=== PATIENT | male | born 1945 ===

== ENCOUNTER 2016-05-05 07:08 | Observation (INO) | payer MEDICARE ==
--- NOTE | ~2016-05-05 | PREOPHP ---
PreOp History and Physical [facility] [address] [place]. [address] NAME: CEDRIC BOWLES : 44 STATUS : ADM Zbigniew PAT#: [id number] AGE: 70 ADM/REG DATE : 05/05/16 MR#: [id number] REPORT SERV DATE: 05/06/16 DICTATED BY: SANDIP EDUARDO DATE: 05/06/16 REPORT STATUS : Draft TRANSCRIBED BY: MODBelinda DATE: 05/06/16 CHIEF COMPLAINT: Back pain, leg pain, right greater than left. HISTORY OF PRESENT ILLNESS: 70-year-old morbidly obese male from the [place] back pain, leg pain that has been through several months of conservative care. Plain x-rays reveal disk degeneration spondylosis throughout his spine severe foraminal stenosis bilaterally at L5-S1. He has had a prior fusion at L4-5. The patient is brought to surgery for a left and right L5-S1 hemilaminotomy, foraminotomy, partial facetectomy. Prior to surgery, risks, benefits, alternatives, and expectations explained. Consent form has been signed. The patient was initially scheduled as a 23-hour observation but his pain severe postop day 1. He is being converted to a regular admission. PAST MEDICAL HISTORY: Morbid obesity, diabetes mellitus type 2, osteoarthritis, hypertension, and gastroesophageal reflux disease. PAST SURGICAL HISTORY: Listed in the chart. See that for detail. CURRENT MEDICATIONS: Alfuzosin, aspirin, gabapentin, hydrocodone, metformin, Singulair, naproxen, Restoril, tramadol. ALLERGIES: MORPHINE. SOCIAL HISTORY: He is , still works, running heavy equipment. He does not use any tobacco or alcohol. FAMILY HISTORY: Noncontributory. REVIEW OF SYSTEMS: Otherwise negative. PHYSICAL EXAMINATION: VITAL SIGNS: He is 6 feet 2 inches, 300 pounds. GENERAL: He is alert, cooperative, well oriented. Ambulates independently. HEENT: Exam is grossly normal. LUNGS: Clear to auscultation. HEART: Rate is regular and rhythmic. ABDOMEN: Soft with good bowel sounds. No peritoneal signs are noted. The spine itself has no deformities. There is decreased range of motion due to pain. He has negative straight leg raise and negative femoral nerve stretch test. His motor strengths are normal in both lower extremities. His reflexes are absent. He has some mild stocking-glove decrease in sensation below the knees bilateral. No myelopathy found. Orthopedically, he has no pain with moving hips, knees, or ankles. There are pulses in all four extremities. No abnormal skin lesions found. ASSESSMENT AND RECOMMENDATIONS: As listed above. PreOp History and Physical [address] [address] NAME: CEDRIC BOWLES : 44 STATUS : ADM Zbigniew PAT#: [id number] AGE: 70 ADM/REG DATE : 05/05/16 MR#: [id number] REPORT SERV DATE: 05/06/16 DICTATED BY: SANDIP EDUARDO DATE: 05/06/16 REPORT STATUS : Draft TRANSCRIBED BY: MODBelinda DATE: 05/06/16 /IVONNE Sandip Eduardo D.O. / [id number] CC: Sandip Eduardo D.O.
--- NOTE | ~2016-05-05 | OP ---
Record Of Operation [facility] [address] [place]. [address] NAME: CEDRIC BOWLES : 44 STATUS : ADM Zbigniew PAT#: [id number] AGE: 70 ADM/REG DATE : 05/05/16 MR#: [id number] REPORT SERV DATE: 05/05/16 DICTATED BY: SANDIP EDUARDO DATE: 05/05/16 REPORT STATUS : Draft TRANSCRIBED BY: MODL DATE: 05/05/16 DATE OF PROCEDURE: 05/05/2016 PREOPERATIVE DIAGNOSIS: Severe stenosis L5-S1 lateral recess and foraminal zone, bilateral, right greater than left. POSTOPERATIVE DIAGNOSIS: Severe stenosis L5-S1 lateral recess and foraminal zone, bilateral, right greater than left. PROCEDURES: 1. Microscopic navigation assisted surgery. 2. Right and left L5-S1 hemilaminectomy, foraminotomy, partial facetectomy, and diskectomy. SURGEON: Sandip Eduardo D.O. PAPER LATCHER: Bartolo Palomo. ANESTHESIA: General. BLOOD LOSS: 25 mL. INDICATION FOR SURGERY: This is a 70-year-old male from the [facility] with prior history of a decompression fusion by spine surgeons in the [place], [place] area at L4-5. At that time he had that initial fusion, he also had a laminectomy midline at L5-S1 but he has now developed intractable right greater than left leg pain. It is worse with standing and walking and somewhat relieved by sitting but even at night, he has had great difficulty sleeping because the pain is so severe. He is very restricted in his ambulatory abilities due to the pain and the onset is when trying to stand and walk. He has had plain x-rays which showed the fusion at L4-5 with hardware. The hardware appears to be in good position. There is marked facet arthropathy at L5-S1 as well as at other levels including L2-3 and L3-4. MRI scan does not show any significant stenosis at L4-5. He has had prior surgery. He has severe lateral recess and foraminal stenosis, worse on the right than the left but he has on both sides. He has tried usual conservative care with time, medication, physical therapy, etc. He has failed conservative care. He is brought to surgery for the above procedure. Prior to surgery, risks, benefits, alternatives, and expectations explained. Consent form is signed. Please also note because of the complexity of surgery and the need to identify the correct level of surgery as well as assist in the safest and most precise dissection, we feel that intraoperative navigation will be mandatory. Antibiotic prophylaxis given. Neurophysiology monitoring leads inserted. The patient was brought to the operative suite. General anesthetic including endotracheal intubation was administered. The patient was placed prone on a Shree spine frame. Bony prominences were carefully padded. Thoracolumbar spine was scrubbed with Hibiclens solution. DuraPrep was Record Of Operation [facility] [address] [facility] [place]. [address] NAME: CEDRIC BOWLES : 44 STATUS : ADM Zbigniew PAT#: [id number] AGE: 70 ADM/REG DATE : 05/05/16 MR#: [id number] REPORT SERV DATE: 05/05/16 DICTATED BY: SANDIP EDUARDO DATE: 05/05/16 REPORT STATUS : Draft TRANSCRIBED BY: IVONNE DATE: 05/05/16 painted. Sterile drapes applied. A small stab wound was carried out of the right posterior superior iliac spine. A percutaneous pin with navigational frame attached was inserted in PSIS. Intraoperative CT scan with O-arm obtained, CT information used to register the navigational system. With navigational assistance, I identified the L5-S1 level. In the midline, a 2 cm skin incision was carried out. Initially, I placed a blunt navigated probe through the fascia and muscle and docked over the remaining lamina, pars and facet joint of L5-S1. Muscle dilator was inserted, followed by placement of a tubular retractor attached to an arm mount on the table. The microscope was sterilely draped and used throughout the remainder of the procedure. With navigational assistance, I outlined carefully where I wanted to debride. I localized the skin edges. I carried out more laminectomy with removal noted 10% to 15% or less, inferior lamina of L5. I removed approximately 70% of the facet joint. Thus, he certainly is a high risk of developing a Pars fracture, but he has such significant spondylosis around the L5-S1 disk space, I think he is essentially auto fused and should be stable. After debriding the ostia of the facet joint, I localized the lateral thecal sac and worked from lateral to medial. I mobilized the epidural fibrosis and allowed the thecal sac to be retracted medially. There was a rather large disc osteophyte complex which was debrided with a combination of the bur as well as a rongeur. I worked from medial to lateral and worked out the canal to remove the herniation which was rather marked and impressive upon the right L5-S1. Once that was complete, the wounds were irrigated. The retractor was removed and I moved to the left side. I replaced the tubular retractor as I previously described. I repeated the same identical hemilaminectomy, foraminotomy, partial facetectomy on the left side with not as much compression on the left as the right side was still with significant medial and mid foraminal stenosis. After final irrigation, the retractor was removed, the fascia closed with interrupted #1 Vicryl suture, subcutaneous tissue closed with 2-0 Vicryl sutures, 2 vertical mattress nylon suture used for skin closure. Sterile dressings were applied. The patient was returned to supine position, awakened, extubated, taken to the recovery room in satisfactory condition, having tolerated the procedure well. Sponge, needle, and instrument counts were correct. No intraoperative complications noted. FARHAN/MODL Sandip Eduardo D.O. / [id number] CC: Sandip Eduardo D.O.
[~2016-05-05 07:08] MED LIST: ASAB PO; GLUCPH PO; LOSARTAN PO; NAP500 PO; NEUR600 PO; NORCO1 TA1 PO; RESTORIL30 MG PO; SINGULAIR1 PO; ULTRAM50 PO; UROXATRAL PO
[2016-05-05 07:50] LABS: HEMATOCRIT 46.5 % (40.0-51.0); HEMOGLOBIN 15.4 g/dL (13.6-17.8)
[2016-05-05 08:00] LABS: BUN (BLOOD UREA NITROGEN) 22 MG/DL (6-23); CALCIUM, SERUM 8.8 MG/DL (8.5-10.4); CHLORIDE, SERUM 104 MMOL/L (96-112); CO2 (CARBON DIOXIDE) 29 MMOL/L (24-34); CREATININE 1.33 MG/DL (0.70-1.30); GFR AFRICAN AMERICAN 62 ML/MIN (>=60); GFR NON AFRICAN AMERICAN 53 ML/MIN (>=60); GLUCOSE, SERUM 117 MG/DL (60-99); POTASSIUM, SERUM 4.2 MMOL/L (3.5-5.3); SODIUM, SERUM 142 MMOL/L (135-148)
[2016-05-07] MEDS ORDERED: ROXICODONE15 MG PO (09:37)
[2016-05-07] MEDS ORDERED: METHOC750B PO (09:37)
== END 2016-05-07 11:55 | disposition home or self-care (01) ==
LOC: SDC 07:08 → 3SO 16:38
PROVIDERS: Anesthesiology; Orthopaedic Surgery Orthopaedic Surgery of the Spine
PROC: 0SB20ZZ Excision of Lumbar Vertebral Disc, Open Approach (ICD-10-PCS; principal; 2016-05-05 08:45)
PROC: 01NB0ZZ Release Lumbar Nerve, Open Approach (ICD-10-PCS; 2016-05-05 08:45)
DX: M48.07 Spinal stenosis, lumbosacral region (principal); E66.01 Morbid (severe) obesity due to excess calories; E11.9 Type 2 diabetes mellitus without complications; M19.90 Unspecified osteoarthritis, unspecified site; J30.2 Other seasonal allergic rhinitis; E78.00 Pure hypercholesterolemia, unspecified; N40.0 Benign prostatic hyperplasia without lower urinary tract symptoms; I10 Essential (primary) hypertension; K21.9 Gastro-esophageal reflux disease without esophagitis; Z79.82 Long term (current) use of aspirin; Z79.891 Long term (current) use of opiate analgesic; Z79.899 Other long term (current) drug therapy; Z88.5 Allergy status to narcotic agent; Z96.652 Presence of left artificial knee joint; Z90.89 Acquired absence of other organs; Z98.890 Other specified postprocedural states; Z90.49 Acquired absence of other specified parts of digestive tract
CPT/HCPCS: 80048; 82962; 85014; 85018; 88304; 88311; 93005; 96374; 96375; 96376; 97116-GP; 97161-GP; A9270-GY; G0378; G8978-CK-GP; G8979-CI-GP; J0690; J1170; J2250; J2274; J2405; J2710; J3010; J3370